=== PATIENT | female | born 1985 | race Caucasian/White ===

== ENCOUNTER 2017-01-03 22:15 | Emergency (ER) | payer OTHER ==
--- NOTE | 2017-01-03 22:33 | PDOC ---
History of Present Illness - General Chief Complaint: Pain, Acute Stated Complaint: RT ABD/FLANK PAIN Time Seen by Provider: 01/03/17 22:23 - History of Present Illness Initial Comments: This 31-year-old woman with a history of anxiety but no other significant past medical history presents with 2 week history of left-sided abdominal pain. Pain was intermittent and mild initially and in the last few days has become steadier and more severe. She was seen by her procedures analyst last week who treated the area expectantly. When pain worsened this week, she contacted him and was scheduled for abdominal/pelvic CT tomorrow. Patient notes nausea but no vomiting; pain worsened somewhat after eating. Bowel movements have been normal without constipation or diarrhea. She denies fevers/chills. No history of dysuria/frequent urination/hematuria. No previous history of this type of pain Patient was able to eat 2 very small meals today at breakfast and lunch although the afternoon meal made pain worse. Patient was seen in the emergency room 2 months ago with chest pain; this was ultimately diagnosed as costochondritis Past History - Past Medical History Allergies/Adverse Reactions: Allergies Allergy/AdvReac Type Severity Reaction Status Date / Time No Known Allergies Allergy Unverified 01/03/17 22:17 Home Medications: Ambulatory Orders Valium PRN 01/03/17 Psychiatric Problems: Yes (ANXIETY) - Psycho/Social/Smoking Cessation Hx Anxiety: Yes Suicidal Ideation: No Smoking History: Never smoked Review of Systems - Review of Systems Able to Perform ROS?: Yes Comments:: 12 point review of systems is negative except for what is noted in the history of present illness *Physical Exam - Physical Exam Comments: GENERAL: Adult female, morbidly obese, alert and oriented 3, HEAD: Normal with no signs of trauma. EYES: PERRLA, EOMI, sclera anicteric, conjunctiva clear. ENT: Ears normal, nares patent, oropharynx clear without exudates. Dry mucous membranes. NECK: Normal range of motion, supple without lymphadenopathy, JVD, or masses. LUNGS: Breath sounds equal, clear to auscultation bilaterally. No wheezes, and no crackles. HEART:Regular rate and rhythm, normal S1 and S2 without murmur, rub or gallop. ABDOMEN:.normal bowel sounds No guarding,tenderness or rebound.No masses No distention. EXTREMITIES: Normal range of motion, no edema. No clubbing or cyanosis. No erythema, or tenderness. NEUROLOGICAL: Cranial nerves II through XII grossly intact. Normal speech. No focal neurological deficits. MUSCULOSKELETAL: Back non-tender to palpation, no CVA tenderness SKIN: Warm, Dry, normal turgor, no rashes or lesions noted. ED Treatment Course - LABORATORY CBC & Chemistry Diagram: 01/03/17 23:00 01/03/17 23:00 Progress Note - Progress Note Progress Note: This 31-year-old woman presents with progressive left-sided abdominal pain for the last 2 weeks; she has had significant increasing amount of pain in the last few days. She has had nausea without vomiting. No fever/chills or change in bowel movements. Exam notable for absence of tenderness or masses (exam somewhat limited by patient's body habitus). Laboratory evaluation notable only for mild elevation of white blood cell count (11,200) Because of patient's worsening pain and mild leukocytosis, possibility of diverticulitis may be present. 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 Results of the study discussed with radiologist, : Other than fatty liver, no acute process identified. No masses/abscesses/obstruction were evident in the abdomen; there is no evidence of ureteral stones/hydronephrosis/ hydroureter Results discussed with the patient. Patient will follow-up with her procedures analyst. Copies of her laboratory tests as well as copy of her CT will be provided for her. She should return to the emergency room if she has persistent, severe pain or develops fever/ vomiting. *DC/Admit/Observation/Transfer Diagnosis at time of Disposition: Left sided abdominal pain - Discharge Dispostion Disposition: HOME Condition at time of disposition: Stable - Referrals Referrals: STAFF,NOT ON [Primary Care Provider] - - Patient Instructions Printed Discharge Instructions: DI for Abdominal Pain-Adult Additional Instructions: followup with your procedures analyst as scheduled Return to the emergency room if you have persistent severe pain or develops fever/vomiting
[2017-01-03 23:08] LABS: PH,URINE 5.5 (4.5-8); URINE APPEARANCE Clear; URINE BILIRUBIN Negative (NEGATIVE); URINE BLOOD Negative (NEGATIVE); URINE GLUCOSE (UA) Negative (NEGATIVE); URINE KETONE Negative (NEGATIVE); URINE LEUK ESTERASE Negative (NEGATIVE); URINE NITRITE Negative (NEGATIVE); URINE PROTEIN Negative (NEGATIVE); URINE UROBILINOGEN 1.0 E.U/dl (0.2-1.0)
[2017-01-03 23:11] LABS: URINE COLOR YELLOW
[2017-01-03 23:20] LABS: EOSINOPHIL 0.1 % (0-4.5); MEAN PLT VOLUME 11.1 fl (7.5-11.1); WHITE BLOOD COUNT 11.2 K/mm3 (4.0-10.8)
[2017-01-03 23:22] LABS: BASOPHIL 0.6 % (0-2.0); MCH 27.8 pg (25.7-33.7); MEAN CELL VOLUME 81.6 fl (80-96); NEUTROPHILS 82.3 % (42.8-82.8); PLATELET COUNT 201 K/MM3 (134-434); RDW 13.2 % (11.6-15.6)
[2017-01-03 23:31] LABS: ALBUMIN 4.4 g/dl (3.5-5.0); ALK PHOS 55 U/L (32-92); ANION GAP 9 (8-16); BILIRUBIN,TOTAL 0.7 mg/dl (0.2-1.0); CALCIUM 8.9 mg/dl (8.4-10.2); CO2 25 mmol/L (22-28); CPK(DFH) 35 IU/L (26-140); CREATININE 0.7 mg/dl (0.6-1.3); GLUCOSE,RANDOM 123 mg/dl (74-106); SGOT/AST 18 U/L (10-42); SGPT/ALT 34 U/L (10-40); TOT PROT 7.1 g/dl (6.4-8.3)
[2017-01-03 23:42] LABS: TROPONIN I (DFP) < 0.03 ng/ml (0.03-0.50)
[2017-01-04 01:27] VITALS: BP 141/70; PULSE 108; TEMP 99.3; BMI 42.0
== END 2017-01-04 04:49 | disposition home or self-care (01) ==
LOC: FER 22:15
DX: R10.32 Left lower quadrant pain (principal); F41.9 Anxiety disorder, unspecified
CPT/HCPCS: 36415; 74176-TC; 80053; 81003; 82550; 84484; 84703; 85025; 99282-25